=== PATIENT | female | born 1985 | race Caucasian/White ===

== ENCOUNTER 2017-09-25 05:54 | Day surgery (SDC) | payer OTHER ==
[2017-09-25] MEDS ORDERED: Sodium Citrate/Citric Acid* 15 ML UDC PO ONE (06:00)
[2017-09-25] MEDS ORDERED: Buffered Lidocaine 0.9% SYRIN* 5 ML/SYR SYRINGE INTRADERM ONE (06:00)
[2017-09-25] MEDS ORDERED: Sodium Citrate/Citric Acid* 15 ML UDC ONE (06:04)
[2017-09-25] MEDS ORDERED: Buffered Lidocaine 0.9% SYRIN* 5 ML/SYR SYRINGE ONE (06:05)
[2017-09-25] MEDS ORDERED: ceFAZolin 2 GM PREMIX (*) 2 GM/50 ML BAG IVPB ONE (06:05)
[2017-09-25] MEDS ORDERED: CeFAZolin 1 GM PREMIX(*) 1 GM BAG (REFRIGERATE) IVPB ONE (06:05)
[2017-09-25] MEDS ORDERED: Bupivacaine 0.5% SDV PF* 30 ML VIAL ONE (07:15)
[2017-09-25] MEDS ORDERED: Lidocaine 2% PF * 5 ML VIAL ONE ×2 (07:15→07:17)
[2017-09-25] MEDS ORDERED: Propofol* 10 MG/ML 20 ML BTL IV PUSH ONE ×2 (07:17→07:48)
[2017-09-25] MEDS ORDERED: fentaNYL* 50 MCG/ML 2 ML VIAL (100 MCG VIAL) ONE ×3 (07:17→09:04)
[2017-09-25] MEDS ORDERED: Ondansetron INJ* 2 MG/ML VIAL IV PRN (08:02)
[2017-09-25] MEDS ORDERED: Ketorolac INJ* 30 MG/ML 1 ML VIAL ONE (08:04)
[2017-09-25] MEDS ORDERED: oxyCODONE TAB* 5 MG TAB ONE (08:57)
[2017-09-25] MEDS: fentaNYL* 50 MCG/ML 2 ML VIAL (100 MCG VIAL) IV PRN ×4 (08:59→09:21)
[2017-09-25] MEDS ORDERED: Acetaminophen TAB* 325 MG ONE (09:01)
[2017-09-25] MEDS ORDERED: Ibuprofen TAB* 600 MG ONE (09:02)
[2017-09-25] MEDS ORDERED: Morphine INJ* 10 MG/ML 1 ML CARPUJECT ONE (09:14)
[2017-09-25 10:24] VITALS: BP 121/86
--- NOTE | 2017-09-26 08:09 | OP ---
DATE OF OPERATION: 09/25/17 [facility], [place] DATE OF : 87 ATTENDING SURGEON: Gilles Evans MD. FIRE PROTECTION ENGINEER: Hayley Potts PA-C. ANESTHESIOLOGIST: Hay Howard DO ANESTHESIA: General PRE-OP DIAGNOSIS: Painful hardware, left tibia fracture. POST-OP DIAGNOSIS: Painful hardware, left tibia fracture. OPERATIVE PROCEDURE: Removal of plate, left tibia. DESCRIPTION OF PROCEDURE: The patient was taken to the operating room where a longitudinal incision was made along the anterior border of the tibia directly through the previous scar. The screws were isolated from the plate, removed with a large fragment locking and unlocking hex head screwdriver. The plate was removed after using an osteotome along its anterior edge. There was no evidence of any defect in the tibia itself. We irrigated thoroughly, closing with 2-0 Vicryl for the subcu and jones for the skin and a compression dressing applied. [id number] #: [id number] MTDD
== END 2017-09-25 10:25 | disposition home or self-care (01) ==
LOC: OR 05:54
PROVIDERS: ATTEND Orthopaedic Surgery
DX: T84.84XA Pain due to internal orthopedic prosthetic devices, implants and grafts, initial encounter (principal); Y79.2 Prosthetic and other implants, materials and accessory orthopedic devices associated with adverse incidents; E66.9 Obesity, unspecified; Z68.42 Body mass index [BMI] 45.0-49.9, adult; F17.210 Nicotine dependence, cigarettes, uncomplicated
CPT/HCPCS: 36415; 81025; 84702; 88300; A9270-GY; J0690; J1885; J2270; J2704; J3010

== ENCOUNTER 2018-10-29 06:52 | Day surgery (SDC) | payer OTHER ==
[~2018-10-29 06:52] MED LIST: Buffered Lidocaine 0.9% SYRIN* 5 ML/SYR SYRINGE INTRADERM ONE; Lactated Ringers 1000 ML Bag* 1,000 ML IV SCH
[2018-10-29] MEDS ORDERED: ceFAZolin 1 GM in Dextrose (*) 1 GM/50 ML BAG IVPB ONE (07:14)
[2018-10-29] MEDS ORDERED: ceFAZolin 2 GM PREMIX in ORs 2 GM/50 ML BAG IVPB ONE (07:14)
[2018-10-29] MEDS ORDERED: Buffered Lidocaine 0.9% SYRIN* 5 ML/SYR SYRINGE ONE (07:14)
[2018-10-29] MEDS ORDERED: Propofol* 10 MG/ML 20 ML BTL ONE (08:08)
[2018-10-29] MEDS ORDERED: Lidocaine 2% PF * 5 ML VIAL ONE (08:09)
[2018-10-29] MEDS ORDERED: Succinylcholine* 20 MG/ML 10 ML VIAL ONE (08:09)
[2018-10-29] MEDS ORDERED: ROPIVACAINE 5 MG/ML 30 ML BTL (0.5%) ONE (08:43)
[2018-10-29] MEDS ORDERED: EPINEPHRINE 1 MG/ML 1 ML VIAL ONE (08:43)
[2018-10-29] MEDS ORDERED: Midazolam* 1 MG/ML 2 ML VIAL (2 MG) ONE (08:47)
[2018-10-29] MEDS ORDERED: fentaNYL* 50 MCG/ML 2 ML VIAL (100 MCG VIAL) ONE ×2 (08:47→11:01)
[2018-10-29] MEDS ORDERED: Lidocaine 2% PF* 10 ML AMP ONE (08:54)
[2018-10-29] MEDS ORDERED: Bupivacaine 0.5% PF 10 ML VIAL INJ ONE (09:02)
[2018-10-29] MEDS ORDERED: Rocuronium* 10 MG/ML VIAL ONE ×2 (09:14→10:08)
[2018-10-29] MEDS ORDERED: Metoclopramide IV* 5 MG/ML 2 ML VIAL ONE (09:50)
[2018-10-29] MEDS ORDERED: Ketorolac INJ* 30 MG/ML 1 ML VIAL ONE (09:50)
[2018-10-29] MEDS ORDERED: Ondansetron INJ* 2 MG/ML VIAL ONE (09:50)
[2018-10-29] MEDS ORDERED: Dexamethasone IV* 4 MG/ML 1 ML (4 MG) ONE (09:50)
[2018-10-29] MEDS ORDERED: Naloxone* 0.4 MG/ML 1 ML VIAL IV PRN (10:19)
[2018-10-29] MEDS ORDERED: Acetaminophen IV 1GM/100ML * 1,000 MG/100 ML VIAL IVPB ONE (10:19)
[2018-10-29] MEDS ORDERED: DiMENhydriNATE IV* 50 MG/ML VIAL IV PUSH PRN (10:19)
[2018-10-29] MEDS ORDERED: Sugammadex * 200 MG/2 ML VIAL IV PUSH ONE (10:25)
[2018-10-29] MEDS ORDERED: HYDROmorphone INJ1* 1 MG/ML SYRINGE ONE (10:34)
[2018-10-29] MEDS ORDERED: Acetaminophen IV 1GM/100ML * 100 ML ONE (10:57)
[2018-10-29] MEDS: fentaNYL* 50 MCG/ML 2 ML VIAL (100 MCG VIAL) IV PRN ×2 (11:01→11:34)
[2018-10-29 11:33] VITALS: BP 122/83
--- NOTE | 2018-10-30 10:38 | OP ---
DATE OF OPERATION: 10/29/18 - [facility] DATE OF : 87 SURGEON: Dr. Gilles Evans. [employer]BEST[employer] CEMENT SHEET SUPERVISOR: Hayley Potts PA-C PRE-OP DIAGNOSIS: Painful nonunion, left midshaft fibula. POST-OP DIAGNOSIS: Painful nonunion, left midshaft fibula. OPERATIVE PROCEDURE: Internal fixation with tibial bone grafting, left fibula. DESCRIPTION OF PROCEDURE: The patient was taken to the operating room where a longitudinal incision was made laterally at the calf directly over the nonunion site. The nonunion was easily exposed and opened with a retractor and then a small power belén used to prepare the nonunion site for fixation. Proximally through a 3-cm incision, I approached the tibial tubercle at Gerdy. A small corticotomy was made and a curette used to harvest graft. This was placed along the nonunion site and then replaced with a small amount of allograft chips. Deep closure of 2-0 Vicryl and then jones for the skin was performed. Fixation of the nonunion consisted of a 9-hole recon plate of the Arthrex set. This was fixed distally and then we used a compression hole proximally to apply longitudinal compression of the bone. The additional screws were then placed through the plates, some in locking mode. X-ray intraoperatively showed satisfactory plate fixation and alignment. We then irrigated closing with 2-0 Vicryl and jones for the skin and a compression dressing plaster splint. [id number] #: [id number] MTDD
== END 2018-10-29 12:15 | disposition home or self-care (01) ==
LOC: OR 06:52
PROVIDERS: ATTEND Orthopaedic Surgery
DX: S82.832K Other fracture of upper and lower end of left fibula, subsequent encounter for closed fracture with nonunion (principal); F17.210 Nicotine dependence, cigarettes, uncomplicated; E66.9 Obesity, unspecified; Z68.42 Body mass index [BMI] 45.0-49.9, adult; X58.XXXD Exposure to other specified factors, subsequent encounter; Y92.9 Unspecified place or not applicable; G89.18 Other acute postprocedural pain
CPT/HCPCS: 76000; 81025; C1713; C1776; J0330; J0690; J1100; J1170; J1885; J2001; J2250; J2405; J2704; J2765; J2795; J3010

== ENCOUNTER 2019-11-08 06:46 | Emergency (ER) | payer OTHER ==
[2019-11-08] MEDS ORDERED: Naproxen TAB* 250 MG PO ONE (07:40)
--- NOTE | 2019-11-08 07:43 | ED ---
Abdominal Pain/Female - HPI Summary HPI Summary: Patient is a 34-year-old female who presents emergency department for right lower abdominal pain 3 days. Patient notes pain is constant and sharp/ cramping sensation. She notes decreased appetite as well. Denies associated symptoms of fever, vomiting, diarrhea, constipation, vaginal discharge/bleeding , urinary symptoms. Past medical history of PCOS. Patient denies concerns for STDs at this time. Patient has not tried any [id number] analgesics. Sxs are moderate in severity. No current modifying factors. - History of Current Complaint Chief Complaint: EDAbdPain Stated Complaint: ABD PAIN PER PT Time Seen by Provider: 11/08/19 07:25 Hx Obtained From: Patient Pain Intensity: 4 Allergies/Adverse Reactions: Allergies Allergy/AdvReac Type Severity Reaction Status Date / Time Adhesive Tape Allergy Intermediate Rash Verified 11/08/19 06:53 Home Medications: Home Medications Bisacodyl [Laxative] 5 mg PO DAILY PRN 11/08/19 [History Confirmed 11/08/19] PMH/Surg Hx/FS Hx/Imm Hx Previously Healthy: Yes Endocrine/Hematology History: Reports: Hx Anemia - HX OF - 10+ YEARS AGO GI History: Reports: Hx Gastrointestinal Bleed - on PPI Musculoskeletal History: Reports: Hx Arthritis - LEFT LEG AND ANKLE AND RIGHT KNEE Sensory History: Reports: Hx Contacts or Glasses - CONTACTS, INSTRUCTED TO WEAR GLASSES DAY OF SURGERY Denies: Hx Hearing Aid Opthamlomology History: Reports: Hx Contacts or Glasses - CONTACTS, INSTRUCTED TO WEAR GLASSES DAY OF SURGERY Psychiatric History: Reports: Hx Anxiety - HX OF, Hx Depression - HX OF - Cancer History Hx Chemotherapy: No - Surgical History Surgery Procedure, Year, and Place: 1999 LEFT TIB/FIB FRACTURE SURGERY X3-4, [facility]. [id number] BONE GRAFT AND PLATE ON LEFT TIB/FIB, [facility]. 2008 REVISION OF TIB/FIB SURGERY, [facility]. 2010 LEFT ANKLE REVISION WITH ORIF, [facility] [place]. 2015-REMOVAL OF HARDWARE LEFT ANKLE Hx Anesthesia Reactions: No Infectious Disease History: No Infectious Disease History: Denies: Traveled Outside the [place] in Last 30 Days - Family History Known Family History: Positive: Non-Contributory - Social History Occupation: Employed Full-time Lives: With Family Alcohol Use: Weekly Alcohol Amount: 2 Substance Use Type: Reports: None Substance Use Comment - Amount & Last Used: MARIJUANA- LAST USED 09/17/17 Smoking Status (MU): Light Every Day Tobacco Smoker Type: Cigarettes Amount Used/How Often: 1/2 PPD FOR ABOUT 15 YEARS Length of Time of Smoking/Using Tobacco: 15 YEARS Have You Smoked in the Last Year: Yes Review of Systems Constitutional: Negative Negative: Fever ENT: Negative Cardiovascular: Negative Respiratory: Negative Positive: Abdominal Pain, Nausea. Negative: Vomiting, Diarrhea Genitourinary: Negative Negative: dysuria, discharge, hematuria Neurological: Negative All Other Systems Reviewed And Are Negative: Yes Physical Exam Triage Information Reviewed: Yes Vital Signs On Initial Exam: Initial Vitals Temp Pulse Resp BP Pulse Ox 98.6 F 108 16 130/88 98 11/08/19 06:47 11/08/19 06:47 11/08/19 06:47 11/08/19 06:47 11/08/19 06:47 Vital Signs Reviewed: Yes Appearance: Positive: Well-Appearing - Pt. lying in bed in NAD. SO present. Skin: Positive: Warm, Dry Head/Face: Positive: Normal Head/Face Inspection Eyes: Positive: Normal, EOMI ENT: Positive: Pharynx normal, TMs normal Neck: Positive: Supple Respiratory/Lung Sounds: Positive: Clear to Auscultation, Breath Sounds Present Cardiovascular: Positive: Normal, RRR Abdomen Description: Positive: Other: - Morbidly obese. Abd. is soft with tenderness to right adnexa. No rebound or guarding.. Negative: CVA Tenderness ( R), CVA Tenderness (L) Neurological: Positive: Normal, CN Intact II-III Psychiatric: Positive: Affect/Mood Appropriate Procedures - Sedation Patient Received Moderate/Deep Sedation with Procedure: No Diagnostics - Vital Signs Vital Signs Temp Pulse Resp BP Pulse Ox 11/08/19 06:47 98.6 F 108 16 130/88 98 - Laboratory Result Diagrams: 11/08/19 07:51 11/08/19 07:51 Lab Statement: Any lab studies that have been ordered have been reviewed, and results considered in the medical decision making process. Abdominal Pain Fem Course/Dx - Course Course Of Treatment: Patient with right lower abdominal pain. Pain seems to be to adnexa on exam. Afebrile. Naproxen given for pain. Will obtain labs, u/a, and pelvic. u/s. Labs unremarkable including normal CBC and CRP. Negative preg. U/A negative for infection. IMPRESSION: 1. A SIMPLE RIGHT OVARIAN CYST MEASURES UP TO 3.6 CM. OVARIAN DOPPLER SIGNAL DETECTED. BILATERALLY (ONLY ARTERIAL WAVEFORMS WERE OBSERVED ON THE RIGHT). 2. THE SUSPECTED LEFT OVARIAN DERMOID IS SIMILAR TO SLIGHTLY INCREASED IN SIZE FROM 2007. 3. AN IUD IS IN PLACE. ADDENDUM. Correction: Arterial and venous ovarian waveforms are detected bilaterally.<Electronically signed by Matthew Dupree MD in OV>11/08/19 0910. Suspect pain is secondary to ovarian cyst. No associated sxs or signs of appendicitis at this time. Results discussed. Pt .comfortable with dc home. To continue nsaid or tylenol for pain as directed. To schedule close f.u with stacker straightener. To return to er for increased pain, fever, vomiting, or if concerned. Pt. understands and agrees with plan. - Diagnoses Differential Diagnosis: Positive: Appendicitis, Constipation, Ectopic , Ovarian Cyst, Pelvic Inflammatory Disease, , Renal Colic, Urinary Tract Infection Provider Diagnoses: Ovarian cyst Discharge ED - Sign-Out/Discharge Documenting (check all that apply): Patient Departure - Discharge Plan Condition: Good Disposition: HOME Patient Education Materials: Ovarian Cyst (ED) Referrals: Chris Byers DO [Primary Care Provider] - Tay Muller MD [Medical Doctor] - Additional Instructions: Call your MANAGER TRANSPORTATION PLANNING's office today for a close follow up appointment Can rotate between tylenol and motrin every 3 hours for pain as directed Apply warm compresses Return to ER for fever, increased pain, vomiting, or if concerned - Billing Disposition and Condition Condition: GOOD Disposition: Home
[2019-11-08 07:59] LABS: ABS Basophils 0.1 10^3/ul (0-0.2); ABS Eosinophils 0.1 10^3/ul (0-0.6); ABS Monocytes 0.5 10^3/ul (0-0.8); ABS Neutrophils 3.9 10^3/ul (1.5-7.7); Eosinophil % 2.2 %; Hematocrit 44 % (35-47); Hemoglobin 15.3 g/dL (12.0-16.0); Lymphocyte % 30.3 %; Mean Corpuscular HGB Conc 35 g/dL (31-36); Mean Corpuscular Hemoglobin 30 pg (27-31); Mean Corpuscular Volume 85 fL (80-97); Mean Platelet Volume 8.4 fL (7.4-10.4); Platelet Count 247 10^3/uL (150-450); Red Blood Count 5.16 10^6 /uL (3.70-4.87); Red Cell Distribution Width 13 % (10-15); White Blood Count 6.7 10^3/uL (3.5-10.8)
[2019-11-08 08:14] LABS: ALT 20 U/L (7-52); AST 12 U/L (13-39); Albumin 4.6 g/dL (3.2-5.2); Albumin/Globulin Ratio 1.9 (1-3); Alkaline Phosphatase 86 U/L (34-104); Anion Gap 5 mmol/L (2-11); BUN/Creatinine Ratio 19.2 (8-20); Blood Urea Nitrogen 14 mg/dL (6-24); C Reactive Protein 5.86 mg/L (<8.01); CO2 Carbon Dioxide 25 mmol/L (22-32); Calcium 9.7 mg/dL (8.6-10.3); Chloride 106 mmol/L (101-111); EGFR African American 111.1 (>60); EGFR Non-African American 91.8 (>60); Globulin 2.4 g/dL (2-4); Glucose 112 mg/dL (70-100); Potassium 4.8 mmol/L (3.5-5.0); Sodium 136 mmol/L (135-145)
[2019-11-08 08:21] LABS: HCG Pregnancy < 0.60 mIU/mL
[2019-11-08 09:00] LABS: Urine Appearance Cloudy; Urine Bilirubin Negative (Negative); Urine Blood 1+ (Negative); Urine Color Yellow; Urine Glucose Negative (Negative); Urine Ketones Negative (Negative); Urine Nitrite Negative (Negative); Urine Protein Negative (Negative); Urine Urobilinogen Negative (Negative)
[2019-11-08 09:05] LABS: Urine Bacteria 1+ (Absent); Urine Red Blood Cell Trace(0-2/hpf) (Absent); Urine Squamous Epithelial Cell Present (Absent); Urine White Blood Cell Trace(0-5/hpf) (Absent)
[2019-11-08 10:17] VITALS: BP 137/98
== END 2019-11-08 10:11 | disposition home or self-care (01) ==
LOC: ED 06:46
DX: N83.291 Other ovarian cyst, right side (principal); Z97.5 Presence of (intrauterine) contraceptive device; R11.0 Nausea; Z32.02 Encounter for pregnancy test, result negative; Z91.048 Other nonmedicinal substance allergy status; F17.210 Nicotine dependence, cigarettes, uncomplicated
CPT/HCPCS: 36415; 76830; 80053; 81003; 81015; 84702; 85025; 86140; 87086; 99283; A9270-GY